=== PATIENT | male | born 1960 | race Caucasian/White ===

== ENCOUNTER → 2016-09-24 | Outpatient (CLI) | payer OTHER ==
[2016-09-24 13:25] LABS: Blood Urea Nitrogen 16 mg/dL (9-20); Non-African American GFR(MDRD) >60 (>60 ml/min/1.73 sqM)
--- NOTE | 2016-09-24 14:55 | CT ---
EXAMINATION TYPE: CT abdomen pelvis w con DATE OF EXAM: 09/24/2016 REFERENCE: NONE HISTORY: Abd Pain R10.9 HISTORY: Groin pain for years REFERENCE: NONE CT DLP: 3415.6 mGy Automated exposure control for dose reduction was used. TECHNIQUE: Helical acquisition through the abdomen and pelvis was obtained following the oral ingesti on of with Oral Contrast and following intravenous administration of 100 mL of Omnipaque 300. The alethea a was reformatted in axial, coronal and sagittal projections. FINDINGS: Visualized portions of the lungs are clear. There is no pleural or pericardial fluid. The heart is not enlarged. Within the abdomen, the liver is prominent measuring 20 cm. The spleen and gallbladder appear normal. Both adrenal glands appear normal. The pancreas is unremarkable. There is a simple appearing 3.7 cm cyst in the mid color region of the right kidney. A second simple cyst is noted in the lower pole of the right kidney measuring 3.7 cm. Left kidney is normal. There is no significant retroperitoneal, iliac or inguinal adenopathy. The bladder is normal. There is mild calcification of the prostate gland. There is thickening of the rectum and rectosigmoid junction. There is no significant diverticular dis ease and there is no radiographic evidence of diverticulitis. The appendix is normal. Small bowel loops are normal. There is no free fluid and no free air. There is hypertrophic spondylosis in the lower dorsal spine. No bony destructive lesion is seen. There is no evidence of inguinal hernia. IMPRESSION: HEPATOMEGALY. 2. SIMPLE APPEARING RIGHT RENAL CYST. 3. THICKENING OF THE RECTOSIGMOID JUNCTION. DIRECT VISUALIZATION WOULD BE SUGGESTED. 4. DEGENERATIVE CHANGES WITHIN THE SPINE.
== END | disposition home or self-care (01) ==
LOC: RADCTMAIN 12:46
PROVIDERS: ATTEND Family Medicine
DX: N28.1 Cyst of kidney, acquired (principal); K59.8 Other specified functional intestinal disorders; R16.0 Hepatomegaly, not elsewhere classified; R10.9 Unspecified abdominal pain; Z13.9 Encounter for screening, unspecified
CPT/HCPCS: 82565; 84520; 74177; 36415; Q9967

== ENCOUNTER 2018-03-19 10:30 | Emergency (ER) | payer OTHER ==
[2018-03-19 11:00] VITALS: RESP 18
[2018-03-19] MEDS ORDERED: SODIUM CHLORIDE 0.9% 1,000 ML IV STA (11:39)
[2018-03-19] MEDS ORDERED: IPRATROPIUM-ALBUTEROL 3 ML NEB INHALATION STA (11:40)
--- NOTE | 2018-03-19 11:56 | ED ---
Chest Pain HPI - General Chief Complaint: Chest Pain Stated Complaint: Chest heaviness/rt arm numbness Time Seen by Provider: 03/19/18 11:12 Source: patient, RN notes reviewed, old records reviewed Mode of arrival: ambulatory Limitations: no limitations - History of Present Illness Initial Comments: Patient is a 57-year-old male presents to return today with chief complaint of increased difficulty breathing, chest pain for the past 3 weeks. Patient reports that he seems to have a dull heaviness to his chest. Patient states that he a feels like his pain is more from his lungs when he is taking a deep breath. He denies any fevers or chills. He denies any back pain. Patient denies any heart racing or fluttering. Patient states he is a diabetic. He has not had a stress test for quite some time. Patient states that he feels like he has had a dry nonproductive cough with this. He does complain of some increased fatigue. denies shortness of breath on exertion. - Related Data Home Medications Medication Instructions Recorded Confirmed Aspirin 81 mg PO DAILY 07/31/14 03/19/18 metFORMIN HCL [Glucophage] 500 mg PO BID 07/31/14 03/19/18 Cholecalciferol [Vitamin D3] 1,000 unit PO DAILY 03/19/18 03/19/18 Lisinopril-Hctz 10-12.5 mg 1 tab PO DAILY 03/19/18 03/19/18 [Zestoretic 10-12.5] Multivitamins, Thera [Multivitamin 1 tab PO DAILY 03/19/18 03/19/18 (formulary)] Previous Rx's Medication Instructions Recorded Albuterol Inhaler [Ventolin Hfa 1 - 2 puff INHALATION RT-Q6H PRN 03/19/18 Inhaler] #1 inhaler predniSONE 10 mg PO DAILY #15 tab 03/19/18 Allergies Allergy/AdvReac Type Severity Reaction Status Date / Time Antihistamines - Alkylamine Allergy Unknown Verified 03/19/18 11:28 Antihistamines - Ethanolamine Allergy Unknown Verified 03/19/18 11:28 Antihistamines - Allergy Unknown Verified 03/19/18 11:28 Ethylenediamine Antihistamines - Piperazine Allergy Unknown Verified 03/19/18 11:28 Antihistamines - Piperidine Allergy Unknown Verified 03/19/18 11:28 Review of Systems ROS Statement: Those systems with pertinent positive or pertinent negative responses have been documented in the HPI. ROS Other: All systems not noted in ROS Statement are negative. EKG Findings - EKG Comments: EKG Findings:: EKG performed at 1044 shows sinus bradycardia, otherwise normal EKG. Ventricular rate of 57 bpm. Was 160 for male sex. She restrictions any 2 ms. QT QTc is 46/395 ms. Past Medical History Past Medical History: Diabetes Mellitus, Hypertension Additional Past Medical History / Comment(s): vertigo History of Any Multi-Drug Resistant Organisms: None Reported Past Surgical History: Adenoidectomy, Tonsillectomy Past Psychological History: No Psychological Hx Reported Smoking Status: Never smoker Past Alcohol Use History: Rare Past Drug Use History: None Reported General Exam - General Exam Comments Initial Comments: This is a pleasant 37-year-old male. Alert and oriented 3. Patient appears in no acute distress. Limitations: no limitations General appearance: alert, in no apparent distress Head exam: Present: atraumatic, normocephalic, normal inspection Eye exam: Present: normal appearance, PERRL, EOMI. Absent: scleral icterus, conjunctival injection, periorbital swelling ENT exam: Present: normal exam, mucous membranes moist Neck exam: Present: normal inspection. Absent: tenderness, meningismus, lymphadenopathy Respiratory exam: Present: wheezes (Lateral wheezing). Absent: normal lung sounds bilaterally, respiratory distress, rales, rhonchi, stridor Cardiovascular Exam: Present: regular rate, normal rhythm, normal heart sounds. Absent: systolic murmur, diastolic murmur, rubs, gallop, clicks GI/Abdominal exam: Present: soft, normal bowel sounds. Absent: distended, tenderness, guarding, rebound, rigid Extremities exam: Present: normal inspection, full ROM, normal capillary refill. Absent: tenderness, pedal edema, joint swelling, calf tenderness Back exam: Present: normal inspection Neurological exam: Present: alert, oriented X3, CN II-XII intact Course Vital Signs 03/19/18 03/19/18 03/19/18 10:57 11:58 12:08 Temperature 98.1 F Pulse Rate 63 63 65 Respiratory 18 Rate Blood Pressure 138/86 O2 Sat by Pulse 99 Oximetry Chest Pain [facility] Patient's 57-year-old male presents return today with shortness of breath for a few complaints of chest heaviness. Patient has risk factors being diabetic. Hypertension. On exam he had bilateral wheezing. 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 Patient is adamant that Patient symptoms seem to be related to his lungs. He was given a DuoNeb treatment and one dose of IV Solu-Medrol. Patient labwork was reviewed and unremarkable. Given the length symptoms and expect to see an abnormality on his EKG or troponin this is cardiac related. These are both reviewed to be normal. His lab work was normal. Chest x-rays negative for any acute cardio pulmonary process. I do believe the Patient had a start of some interstitial lung disease due to his chronic chemical exposure with work. Patient was offered admission for further evaluation for chest pain to rule out significant cardiac origin. He is states that he would prefer to go home. To treat the lung issue. We'll discharge the Patient with inhaler and steroids. I did discuss that he should have very prompt follow-up with his primary care physician. Discussed that he should be pulmonology for PFT testing as well. and needing to schedle stress test. Patient agrees to treatment plan will comply. Return parameters were discussed. Disposition Clinical Impression: COPD exacerbation Disposition: HOME SELF-CARE Condition: Good Instructions: COPD (Chronic Obstructive Pulmonary Disease) (ED) Additional Instructions: Patient advised to follow-up with primary care provider, Patient should have further testing such as already function testing. Also recommended a follow-up to have evaluation such as a stress test. Patient should return to emergency department if there is any further complaints of chest pain or discomfort. Return to emergency Department from any difficulty breathing or change in pain. Prescriptions: Albuterol Inhaler [Ventolin Hfa Inhaler] 1 - 2 puff INHALATION RT-Q6H PRN #1 inhaler PRN Reason: Shortness Of Breath predniSONE 10 mg PO DAILY #15 tab Is patient prescribed a controlled substance at d/c from ED?: No Referrals: Maurice Lin DO [Primary Care Provider] - 1-2 days Time of Disposition: 13:36
[2018-03-19 12:07] LABS: Basophils % (A) 0 %; Eosinophils # (A) 0.1 k/uL (0-0.7); Eosinophils % (A) 2 %; HCT 43.3 % (39.0-53.0); HGB 14.7 gm/dL (13.0-17.5); Lymphocytes % (A) 18 %; MCH 29.3 pg (25.0-35.0); MCHC 34.1 g/dL (31.0-37.0); MCV 86.1 fL (80.0-100.0); Mean Platelet Volume 7.2; Monocytes # (A) 0.3 k/uL (0-1.0); Monocytes % (A) 6 %; Neutrophils # (A) 3.9 k/uL (1.3-7.7); Neutrophils % (A) 71 %; Platelet Count 157 k/uL (150-450); RBC 5.02 m/uL (4.30-5.90); RDW 12.9 % (11.5-15.5); WBC 5.4 k/uL (3.8-10.6)
[2018-03-19 12:16] LABS: ALT 41 U/L (21-72); AST 30 U/L (17-59); Albumin 4.2 g/dL (3.5-5.0); Alkaline Phosphatase 56 U/L (38-126); Anion Gap 9 mmol/L; Blood Urea Nitrogen 16 mg/dL (9-20); Calcium 9.6 mg/dL (8.4-10.2); Carbon Dioxide 25 mmol/L (22-30); Chloride 105 mmol/L (98-107); Glucose 115 mg/dL (74-99); Potassium 4.1 mmol/L (3.5-5.1); Sodium 139 mmol/L (137-145); Total Bilirubin 1.4 mg/dL (0.2-1.3); Total Protein 7.1 g/dL (6.3-8.2)
[2018-03-19 12:20] LABS: D-Dimer 0.32 mg/L FEU (<0.60); Partial Thromboplastin Time 24.9 sec (22.0-30.0); Prothrombin Time 10.8 sec (9.0-12.0)
[2018-03-19 12:21] LABS: Creatine Kinase 128 U/L (55-170)
[2018-03-19 12:33] LABS: Troponin I <0.012 ng/mL (0.000-0.034)
--- NOTE | 2018-03-19 12:52 | XR ---
EXAMINATION TYPE: XR chest 2V DATE OF EXAM: 03/19/2018 COMPARISON: NONE HISTORY: Shortness of breath TECHNIQUE: Frontal and lateral views of the chest are obtained. FINDINGS: Scattered senescent parenchymal changes noted. Hyperinflation compatible with COPD. No evidence for infiltrate. No evidence for atelectasis. Heart size is stable. Mediastinal structures are stable and grossly unremarkable. No evidence for hilar prominence. Degenerative changes dorsal spine. IMPRESSION: 1. No evidence for acute pulmonary disease.
[2018-03-19] MEDS ORDERED: methylPREDNISolone SOD SUCCI 125 MG/2 ML VIAL IV STA (13:36)
[2018-03-19 14:14] VITALS: BP 127/74; PULSE 64; TEMP 97.1
== END 2018-03-19 14:10 | disposition home or self-care (01) ==
LOC: EC 10:30
DX: J44.1 Chronic obstructive pulmonary disease with (acute) exacerbation (principal); E11.9 Type 2 diabetes mellitus without complications; I10 Essential (primary) hypertension; Z88.8 Allergy status to other drugs, medicaments and biological substances; Z79.82 Long term (current) use of aspirin; Z79.84 Long term (current) use of oral hypoglycemic drugs; Z79.899 Other long term (current) drug therapy; Z90.89 Acquired absence of other organs
CPT/HCPCS: 36415; 94640; 93005; 85379; 83880; 80053; 82550; 82553; 83735; 84484; 85025; 85610; 85730; 71046; 99285; 96374; 96361 ×2; J2930

== ENCOUNTER → 2018-05-30 | Outpatient (CLI) | payer OTHER ==
--- NOTE | 2018-05-31 07:16 | US ---
EXAMINATION TYPE: US groin LT, US groin RT DATE OF EXAM: 05/30/2018 COMPARISON: CT abdomen pelvis dated 09/24/2016 CLINICAL HISTORY: R10.2 Pelvic and Perineal Pain. 15 years of rt groin pain , sometimes left groin al so FINDINGS/TECHNIQUE: Targeted sonographic images were performed of the bilateral groin. Grayscale color color Doppler and pulsed wave imaging was performed. No suspicious sonographic abnormality is seen. Common femoral arteries appear unremarkable. Imaging w ith and without Valsalva maneuver within the inguinal regions demonstrates no evidence of hernia bila terally. No suspicious adenopathy. No focal fluid collections. No solid masses. No subcutaneous edema . IMPRESSION: Unremarkable sonographic imaging of the bilateral groin. No evidence of inguinal hernia.
== END | disposition home or self-care (01) ==
LOC: RADUSWWP 15:24
PROVIDERS: ATTEND Family Medicine
DX: R10.2 Pelvic and perineal pain (principal)

== ENCOUNTER → 2020-06-12 | Outpatient (CLI) | payer OTHER ==
[2020-06-12 08:28] LABS: African American GFR (CKD) >90 (>60 ml/min/1.73 sqM); Blood Urea Nitrogen 21 mg/dL (9-20); Non-African American GFR(CKD) >90 (>60 ml/min/1.73 sqM)
--- NOTE | 2020-06-13 11:15 | CT ---
EXAMINATION TYPE: CT urogram wo/w con DATE OF EXAM: 06/12/2020 COMPARISON: CT abdomen pelvis 09/24/2016 HISTORY: Hematuria CT DLP: 3991 mGycm Automated exposure control for dose reduction was used. Contrast: 100 mL Isovue-300 Technique: Axial images 5 mm thick sections. Study is performed without and with intravenous contrast . 3-D reconstructed images performed by the technologist reviewed. FINDINGS: Limited CT sections are obtained through the lung bases which are clear CT ABDOMEN: Liver and spleen are normal density without discrete masses. Small cyst may be within the right lobe liver. Gallbladder is unremarkable. Pancreas is normal. Adrenal glands are normal. Kidneys: There are cysts on the mid to inferior pole right kidney measuring 2.4 and 3.3 cm. This salud ures 4 and 8 Hounsfield units respectively likely are simple cysts. A larger 4.2 cm posterior lateral inferior pole renal cyst is present measuring 0 Hounsfield units compatible with simple cyst. No hyd ronephrosis is evident. No hydroureter is evident. There are a couple of nonobstructing renal stones are at the cyst in the anterior mid right kidney measuring 0.4 cm each. No obstruction is evident. Abdominal aorta is unremarkable. Inferior vena cava is normal. Loops of bowel without oral contrast a ppear normal. CT PELVIS: The appendix is visualized is normal. Distal loops of bowel appear unremarkable. Urinary b ladder is normal. Prostate calcification is present. No prostate enlargement is evident. Osseous stru ctures as visualized are normal. IMPRESSION: 1. NO SUSPICIOUS ABNORMALITY RENAL COLLECTING SYSTEM. NOTE IS MADE OF NONOBSTRUCTING RENAL STONES WHI CH MAY RESIDE WITHIN THE ANTERIOR RIGHT RENAL CYST. 2. ADDITIONAL SIMPLE CYSTS RIGHT KIDNEY.
== END | disposition home or self-care (01) ==
LOC: RADCTMAIN 07:33
PROVIDERS: ATTEND Urology
DX: N20.0 Calculus of kidney (principal); N28.1 Cyst of kidney, acquired
CPT/HCPCS: 82565; 84520; 74178; 36415; 74400; Q9967

== ENCOUNTER 2020-08-07 04:39 | Emergency (ER) | payer OTHER ==
[2020-08-07 04:45] VITALS: BP 163/95; PULSE 62; RESP 20; TEMP 97.9
[2020-08-07] MEDS ORDERED: AMOXIC-POT CLAV 875-125MG 1 EACH TAB PO STA (04:59)
[2020-08-07] MEDS ORDERED: AMOXIC-POT CLAV 875MG STARTER PACK 2 TAB BTL PO STA (04:59)
[2020-08-07] MEDS ORDERED: Acetaminophen-Codeine 300-30mg TAB PO STA (05:00)
[2020-08-07] MEDS ORDERED: ACET/COD 300 MG/30 MG STARTER PACK 6 TAB BTL PO STA (05:00)
--- NOTE | 2020-08-07 05:01 | ED ---
ENT HPI - General Chief complaint: Dental/Oral Stated complaint: Dental Pain Time Seen by Provider: 08/07/20 04:55 Source: patient Mode of arrival: ambulatory Limitations: no limitations - Related Data Home Medications Medication Instructions Recorded Confirmed Aspirin 81 mg PO DAILY 07/31/14 03/19/18 metFORMIN HCL [Glucophage] 500 mg PO BID 07/31/14 03/19/18 Cholecalciferol [Vitamin D3] 1,000 unit PO DAILY 03/19/18 03/19/18 Lisinopril-Hctz 10-12.5 mg 1 tab PO DAILY 03/19/18 03/19/18 [Zestoretic 10-12.5] Multivitamins, Thera [Multivitamin 1 tab PO DAILY 03/19/18 03/19/18 (formulary)] Previous Rx's Medication Instructions Recorded Albuterol Inhaler (Mhu) [Ventolin 1 - 2 puff INHALATION RT-Q6H PRN 03/19/18 Hfa Inhaler (Mhu)] #1 inhaler predniSONE 10 mg PO DAILY #15 tab 03/19/18 Allergies Allergy/AdvReac Type Severity Reaction Status Date / Time Antihistamines - Alkylamine Allergy Unknown Verified 08/07/20 04:45 Antihistamines - Ethanolamine Allergy Unknown Verified 08/07/20 04:45 Antihistamines - Allergy Unknown Verified 08/07/20 04:45 Ethylenediamine Antihistamines - Piperazine Allergy Unknown Verified 08/07/20 04:45 Antihistamines - Piperidine Allergy Unknown Verified 08/07/20 04:45 Review of Systems ROS Statement: Those systems with pertinent positive or pertinent negative responses have been documented in the HPI. ROS Other: All systems not noted in ROS Statement are negative. Past Medical History Past Medical History: Diabetes Mellitus, Hypertension Additional Past Medical History / Comment(s): vertigo History of Any Multi-Drug Resistant Organisms: None Reported Past Surgical History: Adenoidectomy, Tonsillectomy Past Psychological History: No Psychological Hx Reported Smoking Status: Never smoker Past Alcohol Use History: Rare Past Drug Use History: None Reported General Exam Limitations: no limitations Course Vital Signs 08/07/20 04:41 Temperature 97.9 F Pulse Rate 62 Respiratory 20 Rate Blood Pressure 163/95 O2 Sat by Pulse 97 Oximetry Disposition Clinical Impression: Dental abscess, Toothache, Fracture of tooth, Dental caries Disposition: HOME SELF-CARE Condition: Good Instructions (If sedation given, give patient instructions): Toothache (ED), Dental Abscess (ED) Is patient prescribed a controlled substance at d/c from ED?: No Referrals: Maurice Lin DO [Primary Care Provider] - 1-2 days
== END 2020-08-07 05:13 | disposition home or self-care (01) ==
LOC: EC 04:39
DX: S02.5XXA Fracture of tooth (traumatic), initial encounter for closed fracture (principal); K04.7 Periapical abscess without sinus; K02.9 Dental caries, unspecified; I10 Essential (primary) hypertension; E11.9 Type 2 diabetes mellitus without complications; Z79.82 Long term (current) use of aspirin; Z79.84 Long term (current) use of oral hypoglycemic drugs; X58.XXXA Exposure to other specified factors, initial encounter
CPT/HCPCS: 99282

== ENCOUNTER → 2021-03-11 | Outpatient (CLI) | payer OTHER ==
--- NOTE | 2021-03-12 03:20 | MR ---
EXAMINATION TYPE: MR knee LT wo con DATE OF EXAM: 03/11/2021 COMPARISON: None HISTORY: Left knee pain Multiplanar multiecho imaging of the left knee without contrast. There is severe narrowing of the medial joint space. There is degenerative thinning of the medial men iscus. There is significant thinning of the articular cartilage on the medial joint space. There is s mall vertical tear through the posterior horn of the lateral meniscus extending to the inferior surfa ce. There is minimal subchondral edema and cystic changes on both sides of the medial joint space. There is mild knee joint effusion. There is no evidence of a fracture. There is some spurring of the femoral and tibial condyles on the medial aspect. The collateral ligaments appear intact. There is moore bcutaneous edema over the anterior knee. 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 Degenerative thinning of the medial meniscus. No e vidence of ligamentous tear. Knee joint effusion. Subcutaneous edema. There is small vertical tear of the posterior horn of the lateral meniscus.
== END | disposition home or self-care (01) ==
LOC: RADMRIMAIN 19:11
PROVIDERS: ATTEND Orthopaedic Surgery
DX: M17.12 Unilateral primary osteoarthritis, left knee (principal); M23.352 Other meniscus derangements, posterior horn of lateral meniscus, left knee; M23.304 Other meniscus derangements, unspecified medial meniscus, left knee

== ENCOUNTER 2021-04-23 14:19 | Day surgery (SDC) | payer OTHER ==
[2021-04-20 11:26] VITALS: BMI 38.0
--- NOTE | 2021-04-22 15:28 | HP ---
HISTORY AND PHYSICAL DATE OF SURGERY: 04/23/2021 Sandor Mojica is a 60-year-old patient seen with progressive left knee pain. Discussed treatment options with him. He elected to proceed with left knee arthroscopy. Consent was obtained. PAST MEDICAL HISTORY: Hypertension, [id number] diabetes, hyperlipidemia. SURGICAL HISTORY: Noncontributory. DAILY MEDICATIONS: Lisinopril, metformin, rosuvastatin, vitamins. ALLERGIES: NONE. SOCIAL HISTORY: He denies tobacco use. PHYSICAL EVALUATION OF THE LEFT KNEE: His range of motion is zero to 130. Tenderness along the medial and lateral joint lines. Positive medial Rowan's. Positive lateral Rowan's. Ligaments are stable. Hip rotation is without pain. His distal neurovascular exam is intact. Radiographs of the left knee revealed some osteoarthritic changes. MRI left knee revealed a meniscal tear. IMPRESSION: 1. Internal derangement of the left knee with lateral meniscal tear. 2. Hypertension. 3. Hyperlipidemia. 4. [id number]-xmlwaeylr diabetes. PLAN: Left knee arthroscopy with partial lateral meniscectomy and debridement. MMODL / IJN: [id number] /
[~2021-04-23 14:19] MED LIST: DEXAMETHASONE SOD PHOSPHATE 4 MG/ML 1 ML VIAL IV ONE; LACTATED RINGERS 1,000 ML IV SCH; ONDANSETRON 4 MG/2 ML VIAL IVP ONE; ceFAZolin 3 GM in SODIUM CHLORIDE 0.9% 100 ML IVPB PRN; fentaNYL (PF) 50 MCG/ML 2 ML AMP IV PRN
[2021-04-23 15:11] LABS: Glucose,Whole Blood 114 mg/dL (75-99)
[2021-04-23] MEDS ORDERED: SCOPOLAMINE 1.5MG/72HR PATCH TRANSDERM ONE (15:15)
[2021-04-23] MEDS ORDERED: LIDOCAINE 1% INJ 10MG/ML (20 ML MDV) ONE (16:01)
[2021-04-23] MEDS ORDERED: SUCCINYLCHOLINE CHLORIDE 100 MG/5 ML SYR IV ONE (16:01)
[2021-04-23] MEDS ORDERED: PROPOFOL 10 MG/ML 20 ML VIAL IV ONE (16:01)
[2021-04-23] MEDS ORDERED: MIDAZOLAM 2 MG/2 ML VIAL ONE (16:01)
[2021-04-23] MEDS ORDERED: fentaNYL (PF) 50 MCG/ML 2 ML AMP ONE (16:01)
[2021-04-23] MEDS ORDERED: BUPIVACAINE (PF) 0.25% 30 ML VIAL MISCELLANE ONE ×2 (16:27→16:48)
[2021-04-23 16:59] VITALS: RESP 16; TEMP 97
--- NOTE | 2021-04-23 17:04 | P.OP ---
Date of Procedure: 04/23/21 Preoperative Diagnosis: Internal derangement left knee Postoperative Diagnosis: 1. Tear medial and lateral meniscus left knee 2. 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 Reactive synovitis medial, lateral and suprapatellar compartments left knee Procedure(s) Performed: 1. Arthroscopic partial medial and lateral meniscectomy left knee 2. Arthroscopic microfracture medial tibial plateau left knee 3. Arthroscopic partial synovectomy medial, lateral and suprapatellar compartments left knee Anesthesia: BRADENA, local Surgeon: Stanford Marcano Estimated Blood Loss (ml): 7 Pathology: none sent Condition: stable Disposition: PACU Indications for Procedure: 60-year-old patient seen with progressive left knee pain. After having treatment options discussed, he elected to proceed with arthroscopy. Operative Findings: See description of procedure Description of Procedure: Patient was taken to the operative suite. Patient underwent a general anesthetic by the department of anesthesia. Patient was given preoperative antibiotics. The left lower extremity was placed in a well-padded arthroscopic leg mario. The left leg was prepped and draped in the normal sterile orthopedic fashion. A lateral parapatellar and suprapatellar incision was made. Trochars were inserted. Arthroscopy was initiated. Suprapatellar pouch revealed diffuse thick reactive synovitis. The patellofemoral joint appeared to articulate congruently. There was grade 2 chondromalacia of the patellofemoral joint with no osteochondral tears present. The scope was guided into the medial gutter. No loose bodies or plica were identified. The scope was then guided into the medial compartment. A medial parapatellar incision was made. Trocar inserted followed by probe. There was a complex tear involving the mid body and posterior horns the medial meniscus. There were grade 2/3 chondromalacia changes of medial femoral condyle with some diffuse osteochondral flap tears present. There was an area of grade 4 chondromalacia along the medial aspect of the medial tibial plateau with exposed bone. There was thick reactive synovitis anteriorly. I performed a partial medial meniscectomy getting down to stable meniscal tissue. I performed a chondroplasty of the medial femoral condyle getting down to stable osteochondral tissue. I performed a partial synovectomy decompressing the thick reactive synovitis anteriorly. I performed a microfracture to that area of exposed bone medial tibial plateau penetrating the bone with resultant bleeding at the microfracture site. The residual osteochondral surface was probed and found to be stable. The residual meniscus was stable. There was good decompression of the synovitis. Scope and probe were then guided into the intercondylar notch. Cruciates were identified, probed and found to be stable. The scope and probe were then guided into lateral compartment. There was some tearing along the posterior horn of the lateral meniscus. There were grade 2 chondromalacia changes throughout the lateral compartment with no tears present. There was some thick reactive synovitis anteriorly. I performed a partial lateral meniscectomy. I performed a partial synovectomy. The residual meniscus was stable. There was good decompression reactive synovitis. The scope was in guided back into the suprapatellar compartment. I introduced a motorized shaver into the sup rapatellar compartment. I debrided some piecemeal fragments of meniscus I encountered. I performed a partial synovectomy. The shaver was removed. There was good decompression of the synovitis. I took one more look on the entire knee, no residual debris. Instruments were now removed from the joint. The joint was infiltrated with .25% Marcaine. Steri-Strips were applied to the portal sites. Sterile dressings were applied. The patient was placed into a LINDSEY hose. No tourniquet was utilized. The patient was awakened, transferred to a bed and taken to recovery stable satisfactory condition.
[2021-04-23 17:53] VITALS: BP 142/77; PULSE 63
== END 2021-04-23 18:12 | disposition home or self-care (01) ==
LOC: OR 14:19
PROVIDERS: ATTEND Orthopaedic Surgery
DX: M23.204 Derangement of unspecified medial meniscus due to old tear or injury, left knee (principal); M23.201 Derangement of unspecified lateral meniscus due to old tear or injury, left knee; M94.262 Chondromalacia, left knee; M65.862 Other synovitis and tenosynovitis, left lower leg; I10 Essential (primary) hypertension; E11.9 Type 2 diabetes mellitus without complications; G47.33 Obstructive sleep apnea (adult) (pediatric); E78.5 Hyperlipidemia, unspecified; Z97.2 Presence of dental prosthetic device (complete) (partial); Z79.899 Other long term (current) drug therapy; Z79.84 Long term (current) use of oral hypoglycemic drugs
CPT/HCPCS: 29880; 29879; J2250; J1100; J0690; J2405; J2001; J3010; J0330; J2704